=== PATIENT | female | born 1980 | race Hispanic/Latino ===

== ENCOUNTER 2021-11-28 16:44 | Emergency (ER) | payer SELFPAY ==
[2021-11-28 17:38] LABS: #Basophils 0.1 10x3/uL (0.0-0.2); #Eosinphils 1.8 10x3/uL (0.0-0.5); #Monocytes 0.9 10x3/uL (0.0-1.1); #Neutrophils 9.4 10x3/uL (1.5-8.4); %Basophils 0.6 % (0.0-2.0); %Eosinophils 12.1 % (0.0-6.0); %Lymphocytes 16.6 % (18.0-47.0); %Monocytes 6.2 % (0.0-10.0); Hemoglobin 13.2 g/dL (12.0-15.5); Mean Corpuscular Hemoglobin 28.6 pg (27.0-33.0); Mean Corpuscular Volume 89.4 fl (81.6-98.3); Mean Platelet Volume 10.2 fl (7.4-10.4); Platelet Count 426 10x3/uL (150-450); RBC Distribution Width 15.1 % (11.5-14.5); Red Blood Cell (RBC) Count 4.62 10x6/uL (3.90-5.03); White Blood Cell (WBC) Count 14.7 10x3/uL (3.5-10.5)
[2021-11-28 17:47] LABS: BHCG - Serum Negative (NEGATIVE); Pregs Control Background? CLEAR/WHITE (CLR/WHITE); Pregs Control Bar Appear? YES (CONTROL BAR)
[2021-11-28 17:56] LABS: ALT (SGPT) 18 U/L (8-55); AST (SGOT) 20 U/L (5-34); Albumin 3.9 g/dL (3.5-5.0); Alkaline Phosphatase 105 U/L (40-110); Anion Gap 14 mmol/L (10-20); BUN (Urea Nitrogen) 8 mg/dL (7.0-18.7); Bilirubin, Total 0.4 mg/dL (0.2-1.2); Calc. Creatinine Clearance 0 mL/min (70-130); Carbon Dioxide 24 mmol/L (22-29); Chloride 105 mmol/L (98-107); Globulin 3.3 g/dL (2.4-3.5); Glucose 126 mg/dL (70-105); Magnesium 2.1 mg/dL (1.6-2.6); Potassium 3.8 mmol/L (3.5-5.1); Protein, Total 7.2 g/dL (6.0-8.3); Sodium 139 mmol/L (136-145)
[2021-11-28] MEDS ORDERED: Azithromycin 250 MG TAB ONE (19:24)
[2021-11-28 19:42] LABS: SARS-CoV-2 NAA Rapid Test Not Detected (NotDetected)
== END 2021-11-28 19:52 | disposition home or self-care (01) ==
LOC: CSHERS 16:44
DX: J18.9 Pneumonia, unspecified organism (principal); Z20.822 Contact with and (suspected) exposure to COVID-19
CPT/HCPCS: 0240U; 36415; 71045; 80053; 83605; 83735; 83880; 84703; 85025; 87040; 93005; J7620

== ENCOUNTER 2022-02-11 10:10 | Emergency (ER) | payer SELFPAY ==
[2022-02-11] MEDS ORDERED: Ventolin HFA Inhaler 60 PUFF INHALER ONE (10:54)
[2022-02-11] MEDS ORDERED: methylPREDNISolone Sod Succ/PF 125 MG/2 ML VIAL ONE (10:58)
[2022-02-11 11:01] LABS: #Basophils 0.1 10x3/uL (0.0-0.2); #Eosinphils 1.4 10x3/uL (0.0-0.5); #Monocytes 0.6 10x3/uL (0.0-1.1); #Neutrophils 8.1 10x3/uL (1.5-8.4); %Basophils 0.4 % (0.0-2.0); %Lymphocytes 12.4 % (18.0-47.0); %Monocytes 5.3 % (0.0-10.0); %Neutrophils 69.4 % (40.0-75.0); Hemoglobin 12.9 g/dL (12.0-15.5); Mean Corpuscular HGB CONC 33.2 g/dL (32.0-36.0); Mean Corpuscular Hemoglobin 29.1 pg (27.0-33.0); Mean Corpuscular Volume 87.8 fl (81.6-98.3); Mean Platelet Volume 10.3 fl (7.4-10.4); Platelet Count 347 10x3/uL (150-450); RBC Distribution Width 14.4 % (11.5-14.5); Red Blood Cell (RBC) Count 4.43 10x6/uL (3.90-5.03); White Blood Cell (WBC) Count 11.6 10x3/uL (3.5-10.5)
[2022-02-11 11:07] LABS: BHCG - Serum Negative (NEGATIVE); Pregs Control Background? CLEAR/WHITE (CLR/WHITE); Pregs Control Bar Appear? YES (CONTROL BAR)
[2022-02-11 11:13] LABS: ALT (SGPT) 18 U/L (8-55); AST (SGOT) 19 U/L (5-34); Albumin 3.9 g/dL (3.5-5.0); Alkaline Phosphatase 103 U/L (40-110); Anion Gap 14 mmol/L (10-20); BUN (Urea Nitrogen) 9 mg/dL (7.0-18.7); Bilirubin, Total 0.9 mg/dL (0.2-1.2); Calc. Creatinine Clearance 0 mL/min (70-130); Calcium 8.9 mg/dL (7.8-10.44); Carbon Dioxide 23 mmol/L (22-29); Chloride 106 mmol/L (98-107); Globulin 2.7 g/dL (2.4-3.5); Glucose 105 mg/dL (70-105); Protein, Total 6.6 g/dL (6.0-8.3); Sodium 139 mmol/L (136-145)
== END 2022-02-11 13:20 | disposition home or self-care (01) ==
LOC: CSHERS 10:10
DX: J20.9 Acute bronchitis, unspecified (principal); R00.0 Tachycardia, unspecified
CPT/HCPCS: 71045; 80053; 83605; 83880; 84484; 84703; 85025; 94664; 94760; 96374; J2930

== ENCOUNTER 2022-03-14 22:11 | Emergency (ER) | payer SELFPAY ==
[2022-03-14] MEDS ORDERED: Albuterol Sulfate 2.5 mg/3 ml Neb ONE (23:16)
[2022-03-14] MEDS ORDERED: predniSONE 20 MG TAB ONE (23:26)
[2022-03-15] MEDS ORDERED: Magnesium 2 GM/50 ML BAG (IN WATER) ONE (00:04)
== END 2022-03-15 02:13 | disposition home or self-care (01) ==
LOC: CSHERS 22:11
DX: J98.01 Acute bronchospasm (principal); Z79.899 Other long term (current) drug therapy
CPT/HCPCS: 71045; 94640; 94644; 94760; 96365; J3475; J7512; J7611

== ENCOUNTER 2022-07-17 23:00 | Emergency (ER) | payer SELFPAY ==
[2022-07-17] MEDS ORDERED: Albuterol Sulfate 2.5 mg/0.5 ml Neb ONE (23:40)
[2022-07-17] MEDS ORDERED: predniSONE 20 MG TAB ONE (23:42)
[2022-07-18] MEDS ORDERED: Albuterol Sulfate 2.5 mg/0.5 ml Neb ONE (00:13)
[2022-07-18] MEDS ORDERED: Albuterol Sulfate 2.5 mg/3 ml Neb ONE (00:14)
== END 2022-07-18 01:07 | disposition home or self-care (01) ==
LOC: CSHERS 23:00
DX: J45.901 Unspecified asthma with (acute) exacerbation (principal)
CPT/HCPCS: 94644; 94760; J7512; J7611; J7620

== ENCOUNTER 2022-11-04 16:10 | Emergency (ER) | payer SELFPAY ==
[2022-11-04] MEDS ORDERED: predniSONE 20 MG TAB ONE (16:41)
[2022-11-04] MEDS ORDERED: Ketorolac Tromethamine 30 MG/ML VIAL ONE (16:41)
[2022-11-04] MEDS ORDERED: Ipratropium/Albuterol 3 ML NEB ONE (16:59)
[2022-11-04 17:34] LABS: SARS-CoV-2 NAA Rapid Test Not Detected (NotDetected)
== END 2022-11-04 18:22 | disposition home or self-care (01) ==
LOC: CSHERS 16:10
DX: J45.901 Unspecified asthma with (acute) exacerbation (principal); J06.9 Acute upper respiratory infection, unspecified; Z20.822 Contact with and (suspected) exposure to COVID-19; Z79.899 Other long term (current) drug therapy
CPT/HCPCS: 71045; 94640; 94760; 96372; J1885; J7512; J7620; U0002

== ENCOUNTER 2024-10-23 14:47 | Emergency (ER) | payer SELFPAY ==
[~2024-10-23 14:47] MED LIST: Iopamidol 370 76% 100 ML VIAL ONE
[2024-10-23] MEDS ORDERED: Ipratropium/Albuterol 3 ML NEB ONE ×2 (15:43→17:03)
[2024-10-23] MEDS ORDERED: Ketorolac Tromethamine 30 MG (1 mL) VIAL ONE (15:45)
[2024-10-23] MEDS ORDERED: Ondansetron PF 4 MG/2 ML Vial ONE (15:45)
[2024-10-23] MEDS ORDERED: methylPREDNISolone Sod Succ/PF 125 MG/2 ML VIAL ONE (15:45)
[2024-10-23 16:09] LABS: #Basophils Less than 0.03 10x3/uL (0.0-0.2); #Eosinophils 0.13 10x3/uL (0.0-0.5); #Monocytes 0.67 10x3/uL (0.0-1.1); #Neutrophils 2.67 10x3/uL (1.5-8.4); %Basophils 0.2 % (0.0-2.0); %Eosinophils 2.6 % (0.0-6.0); %Lymphocytes 30.8 % (18.0-47.0); %Monocytes 13.3 % (0.0-10.0); %Neutrophils 52.9 % (40.0-75.0); Hematocrit 38.3 % (34.9-44.5); Hemoglobin 12.4 g/dL (12.0-15.5); Mean Corpuscular HGB CONC 32.4 g/dL (32.0-36.0); Mean Corpuscular Hemoglobin 28.8 pg (27.0-33.0); Mean Corpuscular Volume 88.9 fL (81.6-98.3); Mean Platelet Volume 10.3 fL (7.4-10.4); Platelet Count 285 10x3/uL (150-450); RBC Distribution Width 13.3 % (11.5-14.5); Red Blood Cell (RBC) Count 4.31 10x6/uL (3.90-5.03); White Blood Cell (WBC) Count 5.04 10x3/uL (3.5-10.5)
[2024-10-23 16:26] LABS: ALT (SGPT) 16 U/L (Less than 34); AST (SGOT) 31 U/L (11-34); Albumin 3.3 g/dL (3.1-4.5); Alkaline Phosphatase 81 U/L (40-110); Anion Gap 10 mmol/L (10-20); BUN (Urea Nitrogen) 7 mg/dL (7.0-18.7); Bilirubin, Total 0.4 mg/dL (0.3-1.2); Calc. Creatinine Clearance 0 mL/min (70-130); Calcium 8.6 mg/dL (7.8-10.44); Carbon Dioxide 24 mmol/L (22-29); Chloride 107 mmol/L (98-107); Estimated GFR 85; Globulin 3.5 g/dL (2.4-3.5); Glucose 110 mg/dL (70-105); Lipase 25 U/L (8-78); Potassium 3.6 mmol/L (3.5-5.1); Protein, Total 6.8 g/dL (6.0-8.3); Sodium 137 mmol/L (136-145)
[2024-10-23 16:32] LABS: Troponin I 0.047 ng/mL (< 0.028)
[2024-10-23 16:34] LABS: BHCG - Serum Negative (NEGATIVE); Pregs Control Background? CLEAR/WHITE (CLR/WHITE); Pregs Control Bar Appear? YES (CONTROL BAR)
[2024-10-23 19:03] LABS: Troponin I 0.045 ng/mL (< 0.028)
== END 2024-10-23 19:28 | disposition home or self-care (01) ==
LOC: CSHERS 14:47
DX: J45.901 Unspecified asthma with (acute) exacerbation (principal); J11.1 Influenza due to unidentified influenza virus with other respiratory manifestations
CPT/HCPCS: 36415; 71045; 71275; 80053; 83690; 83880; 84484; 84703; 85025; 87428; 93005; J1885; J2405; J2919; J7620

== ENCOUNTER 2025-05-16 17:08 | Emergency (ER) | payer SELFPAY ==
[2025-05-16 17:47] LABS: #Basophils 0.07 10x3/uL (0.0-0.2); #Eosinophils 0.62 10x3/uL (0.0-0.5); #Monocytes 0.64 10x3/uL (0.0-1.1); #Neutrophils 7.00 10x3/uL (1.5-8.4); %Basophils 0.7 % (0.0-2.0); %Eosinophils 5.9 % (0.0-6.0); %Lymphocytes 20.4 % (18.0-47.0); %Monocytes 6.1 % (0.0-10.0); %Neutrophils 66.6 % (40.0-75.0); Hematocrit 40.2 % (34.9-44.5); Hemoglobin 12.9 g/dL (12.0-15.5); Mean Corpuscular Hemoglobin 28.7 pg (27.0-33.0); Mean Corpuscular Volume 89.5 fL (81.6-98.3); Platelet Count 359 10x3/uL (150-450); Red Blood Cell (RBC) Count 4.49 10x6/uL (3.90-5.03); White Blood Cell (WBC) Count 10.50 10x3/uL (3.5-10.5)
[2025-05-16 17:50] LABS: Actual Bicarbonate (HCO3v) 22.0 mEq/L (22-28); Analyzer IN Cardio CS ER; Base Excess -2.4 mEq/L (-2 - +2); Calcium, Ionized (venous) 1.15 mmol/L (1.16-1.32); Chloride (VBG) 106 mmol/L (98-106); Critical Notified By: Udy, RRT; Critical Notified Whom: tylor, RN; Hematocrit-VBG 39 % (36.0-47.0); Hemoglobin (Hb) 13.1 g/dL (11.7-15.5); Potassium (VBG) 3.70 mmol/L (3.70-5.30); Puncture Site Other Site; RapidComm Collect By CSUC.CNC; Sodium 140 mmol/L (133-146)
[2025-05-16 18:04] LABS: ALT (SGPT) 13 U/L (Less than 34); AST (SGOT) 16 U/L (11-34); Albumin 4.2 g/dL (3.1-4.5); Alkaline Phosphatase 107 U/L (40-110); Anion Gap 13 mmol/L (10-20); BUN (Urea Nitrogen) 17 mg/dL (7.0-18.7); Bilirubin, Total 0.5 mg/dL (0.3-1.2); Calc. Creatinine Clearance 0 mL/min (70-130); Calcium 9.1 mg/dL (7.8-10.44); Carbon Dioxide 24 mmol/L (22-29); Chloride 107 mmol/L (98-107); Globulin 3.5 g/dL (2.4-3.5); Glucose 141 mg/dL (70-105); Potassium 3.9 mmol/L (3.5-5.1); Sodium 140 mmol/L (136-145)
[2025-05-16] MEDS ORDERED: Ketorolac Tromethamine 30 MG (1 mL) VIAL ONE (18:06)
[2025-05-16 18:08] LABS: Troponin I 0.046 ng/mL (< 0.028)
[2025-05-16 19:43] LABS: Troponin I 0.038 ng/mL (< 0.028)
[2025-05-16] MEDS ORDERED: Ondansetron PF 4 MG/2 ML Vial ONE (19:45)
== END 2025-05-16 20:05 | disposition home or self-care (01) ==
LOC: CSHERS 17:08
DX: R07.89 Other chest pain (principal); J45.909 Unspecified asthma, uncomplicated
CPT/HCPCS: 36415; 71045; 80053; 82805; 83880; 84484; 85025; 87426; 93005; 94640; 96374; 96375; J1885; J2270; J2405; J7620

== ENCOUNTER 2025-06-28 18:04 | Emergency (ER) | payer SELFPAY | END 2025-06-28 18:56 | disposition home or self-care (01) | LOC: CSHERS 18:04 | DX: S52.611A Displaced fracture of right ulna styloid process, initial encounter for closed fracture (principal); S80.11XA Contusion of right lower leg, initial encounter; J45.909 Unspecified asthma, uncomplicated; Z55.6 Problems related to health literacy; V89.2XXA Person injured in unspecified motor-vehicle accident, traffic, initial encounter; Y93.89 Activity, other specified | CPT/HCPCS: 96374; 99283 ==